=== PATIENT | male | born 1980 | race Caucasian/White ===

== ENCOUNTER 2025-09-15 11:35 | Emergency (ER) | payer OTHER, SELFPAY ==
[2025-09-15 11:39] VITALS: BP 200/120
[2025-09-15 12:02] LABS: Hematocrit 42.6 % (39.0-52.0); Hemoglobin 15.0 g/dL (13.0-18.0); Mean Corp Hgb Conc. 35.2 g/dL (33.0-37.0); Mean Corpuscular Volume 87.5 fL (80.0-94.0); Nucleated Red Blood Cells % 0 % (-); Platelet Count 446 10^3/uL (130-400); Red Cell Dist. Width 12.2 % (11.5-14.5)
[2025-09-15 12:20] LABS: ALT (SGPT) 35 U/L (0-50); AST (SGOT) 32 U/L (17-59); Albumin 4.8 g/dl (3.5-5.0); Alkaline Phosphatase 147 U/L (38-126); Blood Urea Nitrogen 7 mg/dl (9-20); Calcium 9.5 mg/dl (8.4-10.2); Carbon Dioxide 27 mmol/L (22-30); Chloride 102 mmol/L (98-107); Glucose 115 mg/dl (70-99); Potassium 3.2 mmol/L (3.5-5.1); Sodium 138 mmol/L (135-145); Total Protein 7.7 g/dl (6.3-8.2); eGFR > 60.00
[2025-09-15 12:30] VITALS: BP 169/105; BMI 31.0
[2025-09-15 14:28] LABS: COVID-19 Antigen Negative (Negative)
[2025-09-15] MEDS: KCL 40 MEQ PO (14:42)
[2025-09-15 14:46] LABS: Urine Character Clear (Clear)
--- NOTE | 2025-09-15 15:06 | ED.GENMED ---
History of Present Illness
General
Chief Complaint: Anxiety
Source: patient
Exam Limitations: none
Time Seen by Provider: 09/15/25 12:30
History of Present Illness
History of Present Illness:
45-year-old male issues with anxiety, palpitations. Started yesterday. Medication adjustments a months ago. Some slight cough. No fever no chest pain or shortness of breath no other complaints.
Past History
Past History
ED Past Medical History: HTN, Hypercholesterolemia and Psychiatric
ED Past Surgical History: None
Review of Systems
Review of Systems
All Other Systems: Not applicable
Constitutional: Denies fever or chills
Respiratory: Denies trouble breathing
Cardiac: Denies chest pain or syncope
ABD/GI: Reports no symptoms
Phy Exam
Physical Exam
Physical Exam:
GENERAL: Alert and oriented in no apparent distress
EYE: Orbits normal.
NECK: Supple, no thyroid palpable
ENT: Pharynx without erythema
CARDIAC: Regular rate and rhythm without any obvious murmurs.
LUNGS: Clear breath sounds,normal
ABDOMEN: Soft, without focal tenderness or distention
NEUROLOGICAL: Alert and oriented , grossly non-focal
SKIN: Warm and dry, mild areas of eczematous rash on the arms and legs. No petechia no purpura. No cellulitis
MUSCULOSKELETAL: No edema,no deformity.Good color
PSYCH: Normal and appropriate interaction.
Course
Orders/Labs/Results
Orders:
Orders
09/15/25 11:50
Complete Blood Count/With Diff Urgent
Comprehensive Metabolic Panel Urgent
09/15/25 12:26
Crisis Consult Urgent
Reason for Consult: anxiety, wants outpatient resources
09/15/25 12:45
CXR2 [CR Chest - 2 Views ] Urgent
Comment:
Reason For Exam: Cough/leukocytosis
09/15/25 13:11
COVID-19 Antigen Urgent
Source: Nasal Swab
Urinalysis Reflex To Culture Urgent
Date Specimen was Collected: 09/15/25
Time Specimen was Collected: 13:09
Influenza A+B Rapid Molecular Urgent
KAYE Source: Nasal Swab
Specimen Description:
09/15/25 14:34
Potassium Chloride [KCl] 40 meq PO NOW STA
09/15/25 15:24
EKG [Electrocardiogram (*1)] Urgent
Reason for Study: Palpitations
EKG- Treatment ONCE
09/15/25 15:36
Troponin I Urgent
Abnormal Lab Results
09/15/25 09/15/25
11:50 13:11
WBC 15.8 H 10^3/uL
(4.8-10.8)
Plt Count 446 H 10^3/uL
(130-400)
Abs Immat Gran (auto) 0.2 H 10^3/uL
(0-0.05)
Absolute Neuts (auto) 12.7 H 10^3/uL
(1.4-6.5)
Absolute Monos (auto) 1.1 H 10^3/uL
(0.1-0.6)
Immature Gran % 1.3 H %
(0-0.5)
Neutrophils % 80.4 H %
(42.2-75.2)
Lymphocytes % 10.4 L %
(20.5-51.1)
Potassium 3.2 L mmol/L
(3.5-5.1)
BUN 7 L mg/dl
(9-20)
Glucose 115 H mg/dl
(70-99)
Alkaline Phosphatase 147 H U/L
(38-126)
Urine Ketones 3+ A
(Negative)
09/15/25 11:50
09/15/25 11:50
Vital Signs
Initial and Last Documented VS:
Initial Vital Signs
Temp Pulse Resp BP Pulse Ox
98.5 F 106 16 200/120 98
09/15/25 11:39 09/15/25 11:39 09/15/25 11:39 09/15/25 11:39 09/15/25 11:39
Last Documented Vital Signs
Temp Pulse Resp BP Pulse Ox
98.5 F 85 16 157/102 98
09/15/25 11:39 09/15/25 15:17 09/15/25 15:17 09/15/25 15:17 09/15/25 15:17
*Radiology
Radiology exam reviewed: radiology read reviewed (Negative)
*Pulse Oximetry
SaO2: 99
Oxygen Mode of Delivery: Room air
Patient hypoxic: no
*Critical Care Note
Total Time (30-74mins, 75-104mins- exclusive of procedures): Not Applicable
Update Note
Update Note:
Patient has remained very medically stable and nontoxic. Has a mild bandemia and leukocytosis although I cannot find any significant infectious issue or bacterial infectious issue. Possible underlying viral syndrome. Medically stable for
discharge to follow-up.
As patient was being discharged I elected to get an EKG for completeness although clinically and incredibly low suspicion for an acute cardiac issue. Only describing palpitations and some nausea yesterday.
Of note patient's symptoms have been continuous since the day before very very atypical for an ischemic cardiac issue. EKG was done for completeness with a nonspecific changes elected to do a troponin which was also normal. No indication for
pretest
ED Attending Note
-
Portions of this chart may have been created with voice recognition software.� Occasional wrong word or��sound alike� substitutions may have occurred due to the inherent limitations of voice recognition software.
Discharge Plan
Departure
Patient Disposition: Home (Routine Discharge)
Date of Disposition: 09/15/25
Time of Disposition: 15:07
Patient with high blood pressure during this ER visit?: Yes
Discharge Problem:
Suspect viral syndrome, Mild hypokalemia
Instructions: Hypokalemia, Anxiety, Adult (DC), BLOOD PRESSURE
Prescriptions:
No Action
multivitamin Tablet
1 tab PO DAILY
amlodipine 5 mg Tablet
5 mg PO DAILY
lisinopril 40 mg Tablet
40 mg PO DAILY
fluoxetine 60 mg Tablet
60 mg PO DAILY
doxycycline monohydrate 100 mg capsule
100 mg PO BID Qty: 20 1RF
Referrals:
Ella Lua MD [Family Provider, Internal Medicine] - Follow up in 2-3 days
Activity Restrictions/Additional Instructions:
Stay well-hydrated
Return with fever ongoing or progressive symptoms chest pain shortness of breath unusual headache rash or any other concerning symptoms
Follow-up for your anxiety as per the crisis team
Interventions
Interventions:
*General Assessment Last Done: 09/15/25 11:39
*Neglect/Abuse Screening Last Done: 09/15/25 11:39
*ED COVID-19 Vaccine History Last Done: 09/15/25 11:39
*ED Influenza Vaccine History Last Done: 09/15/25 11:39
[facility] Fall Risk Assessment Tool Last Done: 09/15/25 12:30
*Risk Screen - Suicide (C-SSRS) Last Done: 09/15/25 11:39
*Nursing Disposition Last Done: 09/15/25 15:19
ED-Psychological Assessment Last Done: 09/15/25 12:30
Discharge Date and Time
Discharge Date/Time: 09/15/25 15:19
Print Language: YAKUT
[2025-09-15 15:17] VITALS: BP 157/102
[2025-09-15 16:05] LABS: Troponin I 0.019 ng/ml
== END 2025-09-15 15:19 | disposition home or self-care (01) ==
LOC: EMR 11:35
PROVIDERS: EMERGENCY PHYSICIAN Emergency Medicine; FAMILY PHYSICIAN Internal Medicine
DX: E87.6 Hypokalemia (principal); R05.9 Cough, unspecified; R00.2 Palpitations; E78.00 Pure hypercholesterolemia, unspecified; I10 Essential (primary) hypertension; Z11.52 Encounter for screening for COVID-19
CPT/HCPCS: 99285; 71046; 80053; 81003; 84484; 85025; 87502; 87811; 93005